=== PATIENT | male | born 1985 | race Caucasian/White ===

== ENCOUNTER 2017-07-04 23:54 | Emergency (ER) | payer OTHER ==
--- NOTE | 2017-07-05 00:04 | Emergency Department Record ---
History of Present Illness - General Chief complaint: Extremity Problem Stated complaint: THUMB INJURY Time Seen by Provider: 07/05/17 00:01 Source: Patient Mode of Arrival: Ambulatory Limitations: No limitations - History of Present Illness Initial comments: The patient shut his R thumb in a door 15 hours ago. He did develop a small subungual hematoma and did try to drain it himself but was not successful. Now the thumb is still throbbing. Complaint: Extremity pain Onset/Timin -: Days(s) - Related Data Previous Rx's Medication Instructions Recorded Cephalexin [Keflex] 500 mg PO QID #20 cap 07/05/17 Allergies Allergy/AdvReac Type Severity Reaction Status Date / Time sulfamethoxazole Allergy Mild PT UNSURE Verified 07/05/17 00:01 [From Bactrim] OF REACTION trimethoprim [From Bactrim] Allergy Mild PT UNSURE Verified 07/05/17 00:01 OF REACTION Coumarin Analogues Allergy Unknown PT UNSURE Verified 07/05/17 00:01 [COUMARIN ANALOGUES] OF REACTION Sulfa (Sulfonamide Allergy Unknown PT UNSURE Verified 07/05/17 00:01 Antibiotics) OF REACTION Review of Systems Constitutional: Denies: Chills, Fever Physical Exam - General General Appearance: Alert, Cooperative, No acute distress - Head Head exam: Atraumatic, Normocephalic - Eye Eye exam: Normal appearance, PERRL - Extremities Extremities exam: Full ROM (with pain.), Normal capillary refill, Tenderness ( over the DIP joint of the R thumb.). negative: Normal inspection (There is a small subungual hematoma to the proximal R thumb nail. There is pain with ROM of the thumb.), Joint swelling - Neurological Neurological exam: Alert. negative: Motor sensory deficit Course Vital Signs 07/04/17 23:58 Temperature 97.4 F L Pulse Rate [ 75 Pulse Ox Probe] Respiratory 20 Rate Blood Pressure 126/72 [Left Arm] Pulse Ox 100 - Reevaluation(s) Reevaluation #1: The patient had the R thumb hematoma drained with an electrocautery with no difficulty. There was a large amount of blood expressed. The patient felt improved after the procedure. He will take Tylenol as directed and see his family doctor for recheck next week. The patient refused his Td shot. He understands the risks of refusing and that Tetanus is a fatal disease. 07/05/17 00:30 Medical Decision Making - Data Complexity MDM Data: X-Ray Ordered and/or Reviewed - Radiology Data Radiology results: Report reviewed (R thumb: Neg.) Disposition Disposition: Discharge Clinical Impression: Subungual hematoma of digit of hand Qualifiers: Encounter type: initial encounter Qualified Code(s): S60.10XA - Contusion of unspecified finger with damage to nail, initial encounter Disposition: Home, Self-Care Condition: (2) Stable Instructions: Subungual Hematoma (ED) Additional Instructions: Keep the thumb clean and dry. Watch for signs of infection. Take Tylenol for pain and Keflex as directed. Please see your family doctor for recheck in 3-4 days. Return to the ER for any worsening problems. Prescriptions: Cephalexin [Keflex] 500 mg PO QID #20 cap Forms: Patient Portal Access Time of Disposition: 00:29 Quality - Quality Measures Quality Measures: N/A - Blood Pressure Screening View Details: Yes Does Patient Have Any of the Following: No Blood Pressure Classification: Pre-Hypertensive BP Reading Systolic Measurement: 126 Diastolic Measurement: 72 Screening for High Blood Pressure: < Pre-Hypertensive BP, F/U Documented > [ [id number]] Pre-Hypertensive Follow-up Interventions: Referral to alternative/primary care provider.
[2017-07-05] MEDS ORDERED: Diph,Pert(Acell),Tet Vac 0.5 ML SYR IM ONE (00:06)
[2017-07-05] MEDS ORDERED: HYDROCODONE/APAP 5/325MG TABLET PO ONE (00:27)
--- NOTE | 2017-07-06 10:44 | RADIOLOGY REPORT ---
EXAM: RIGHT FIRST DIGIT HISTORY: INJURY. TECHNIQUE: Three views of the right first digit were performed. FINDINGS: There is no evidence of fracture or dislocation. No lytic or blastic lesion. IMPRESSION: NEGATIVE RIGHT FIRST DIGIT EXAMINATION. JOB NUMBER: [id number] [facility]
== END 2017-07-05 00:36 | disposition home or self-care (01) ==
LOC: ER 23:54
DX: S60.011A Contusion of right thumb without damage to nail, initial encounter (principal); W22.8XXA Striking against or struck by other objects, initial encounter
CPT/HCPCS: 11740; 99283; 99284